=== PATIENT | male | born 1990 | race Caucasian/White ===

== ENCOUNTER 2023-08-31 05:16 | Emergency (ER) | payer BC, SELFPAY ==
[2023-08-31 05:21] VITALS: BP 113/68; PULSE 91; RESP 18; TEMP 38.1; O2SAT 98; BMI 32.4
--- NOTE | 2023-08-31 05:46 | ED.FEVER ---
HPI - Fever General Chief Complaint: Fever Stated Complaint: fever, body aches Time Seen by Provider: 08/31/23 05:46 History of Present Illness HPI Narrative: Patient is a 33-year-old gentleman comes in today with 2 day history of fever body aches general malaise and fatigue. He has no pharyngitis. He has no productive cough. He has taken Tylenol Motrin with limited success. He otherwise is in good health. He has no chronic medical issues. He has had no sick contacts. Triple swab is pending. Related Data Home Medications Medication Instructions Recorded Confirmed No Known Home Medications 08/31/23 08/31/23 Allergies Allergy/AdvReac Type Severity Reaction Status Date / Time No Known Drug Allergies Allergy Verified 08/31/23 05:24 Review of Systems Status of ROS Reports: 10 or more systems reviewed and unremarkable except as noted in History and below Exam Narrative Exam Narrative: EXAM GENERAL: Patient appears comfortable and well. EYES: No scleral icterus. ENT: Tympanic membranes and oropharynx normal. THYROID: no thyroid nodules or thyromegaly. LYMPH: No supraclavicular or cervical lymphadenopathy. SKIN: Visible skin seen during exam normal or with benign process only. EXT: No dependent lower extremity pedal edema. HEART: Regular rate and rhythm with no murmurs, rubs, or gallops. LUNGS: Clear to auscultation bilaterally with no crackles or wheezes. ABD: Soft, non tender, non distended. PSYCH: Good eye contact, speech is not pressured. Const Vital Signs, click to edit/add: Vital Signs - 24 hr 08/31/23 05:21 Temperature 100.5 F H Pulse Rate [Left Pulse Oximeter] 91 Respiratory Rate 18 Blood Pressure [Right Upper Arm] 113/68 Pulse Oximetry 98 Oxygen Delivery Method Room Air Course Course ED Course: Patient seen and examined. Vital Signs Vital signs: Initial Vital Signs Temperature 100.5 F H 08/31/23 05:21 Temperature Source Temporal Artery Scan 08/31/23 05:21 Pulse Rate 91 08/31/23 05:21 Pulse Rhythm Regular 08/31/23 05:21 Respiratory Rate 18 08/31/23 05:21 Blood Pressure 113/68 08/31/23 05:21 Blood Pressure Mean 83 08/31/23 05:21 Blood Pressure Position Sitting 08/31/23 05:21 Pulse Oximetry 98 08/31/23 05:21 Oxygen Delivery Method Room Air 08/31/23 05:21 Vital Signs Temperature 100.5 F H 08/31/23 05:21 Pulse Rate 91 08/31/23 05:21 Respiratory Rate 18 08/31/23 05:21 Blood Pressure 113/68 08/31/23 05:21 Pulse Oximetry 98 08/31/23 05:21 Oxygen Delivery Method Room Air 08/31/23 05:21 Temperature 100.5 F H 08/31/23 05:21 Pulse Rate 91 08/31/23 05:21 Respiratory Rate 18 08/31/23 05:21 Blood Pressure 113/68 08/31/23 05:21 Pulse Oximetry 98 08/31/23 05:21 Oxygen Delivery Method Room Air 08/31/23 05:21 MDM - Fever MDM Narrative Medical decision making narrative: Patient is a 33-year-old gentleman presents with a fever body aches and fatigue. Triple swab is pending. This time will continue Tylenol Motrin rest and fluids and follow-up with him based on his results. Differential Diagnosis Differential diagnosis: Likely cellulitis, fever of unknown origin, community acquired pneumonia, viral infection, sepsis and influenza Discharge Plan Discharge Clinical Impression: Acute viral syndrome Patient Disposition: Home, Self-Care Condition: Stable Instructions: Viral Syndrome (ED) Additional Instructions: Tylenol Motrin Rest Fluids We will follow-up with you based on your swab results. Activity Level: No Restrictions Discharge Diet: Regular Prescriptions: No Action No Known Home Medications Follow Up/Referrals: Matthew Ortiz MD [Primary Care Provider] - Stand Alone Forms: [employer] Info Instructions
[2023-08-31 06:00] VITALS: RESP 22; TEMP 38.1; O2SAT 98
[2023-08-31 06:18] LABS: PCR FLU A POSITIVE PCR FLU A (Negative); PCR FLU B Negative PCR FLU B (Negative); PCR RSV Negative PCR RSV (Negative); SARS PCR* Negative SARS-CoV-2 (Negative)
== END 2023-08-31 06:02 | disposition home or self-care (01) ==
LOC: ED 05:52
PROVIDERS: Emergency Provider Internal Medicine; PCP Family Medicine
DX: B34.9 Viral infection, unspecified (principal)
CPT/HCPCS: 87631; 99282; 99283

== ENCOUNTER 2025-03-07 00:42 | Emergency (ER) | payer BC, SELFPAY ==
--- OUTSIDE RECORDS SUMMARY | 2025-03-07 00:46 | XMS_ITS | Clinical Summary ---
Author Organization [facility] Address [address] [place] [id number] Care Team Providers Care Health Care Specialist Name Role Phone Pcp, No Primary Care Provider Unavailabl e Allergies No known active allergies Medications * This document contains information received from the source organization and may not represent a complete record from that organization. escitalopram oxalate 10 mg tabletIndications: Anxiety and depression Take 1 Tablet (10 mg) by mouth once daily in the morning. 30 Tablet 5 5 Active traZODone (DESYREL) 50 mg tabletIndications: Insomnia, unspecified type Take 1 Tablet (50 mg) by mouth at bedtime. 30 Tablet 2 5 Active buPROPion (WELLBUTRIN XL) 300 mg Extended-Release tabletIndications: ADHD, predominantly hyperactive type,Moderate episode of recurrent major depressive disorder (HC) Take 1 Tablet (300 mg) by mouth once daily. 30 Tablet 1 5 Active hydrOXYzine HCL 25 mg tabletIndications: Anxiety and depression Take 1 Tablet (25 mg) by mouth every 6 hours if needed for Itching. 25 Tablet 1 5 02/16/20 25 Discontinu ed(*Med ineffectiv e) buPROPion (Wellbutrin XL) 150 mg Extended-Release tabletIndications: ADHD, predominantly hyperactive type Take 1 Tablet (150 mg) by mouth once daily in the morning. 30 Tablet 1 5 02/16/20 25 Discontinu ed(*Medica tion adjustment ) Active Problems Problem Noted Date Diagnosed Date Traumatic incomplete tear of left rotator cuff 0 09/21/2024 Atypical nevus 07/06/2021 Overview (08/21/2021): 07/04/21 Left low back, Compound nevus with severe atypia: Excised 08/15/21 Kadeem Saldana spell 09/21/2011 Unresponsive episode 09/21/2011 Dysthymic disorder 09/21/2011 Anxiety state, unspecified 06/02/2011 Cocaine abuse, episodic 04/26/2011 Tobacco use disorder 04/26/2011 Polysubstance abuse Overview (07/16/2011): THC, cocaine, heroin, treatment 05/10 Anxiety Resolved Problems Problem Noted Date Diagnosed Date Resolved Date Chemical dependency-heroin 09/21/2011 0 11/17/2024 Overview (09/21/2011): Chronic heroin use. Chem dep treatment at [facility] x 4. Last treatment episode was informed last time they would take him in (admitted 08/15/11). Heroin addiction 09/21/2011 11/17/2024 Accidental heroin overdose 09/21/2011 0 11/17/2024 Drug withdrawal 08/12/2011 08/20/2011 Drug withdrawal 06/07/2011 06/11/2011 Opioid type dependence, continuous 04/26/2011 11/17/2024 Drug withdrawal 04/26/2011 05/07/2011 Cannabis dependence, continuous 04/26/2011 11/17/2024 Drug-induced mood disorder(292.84) 04/26/2011 06/11/2011 Encounters Date Type Department Care Team Description 02/15/2025 2:30 PM CDT Telemedicine [facility] [address] [address] Lizbeth Ryan NP Follow Up; Medication Management; Telehealth 02/15/2025 Travel 02/14/2025 Travel 01/11/2025 1:00 PM CDT Office Visit [facility] [address] [facility] [address] [place] [address] Lizbeth Ryan NP Mental Health Intake; Medication Management (Sees therapy for past month, PCP for two months- started patient on medications. ) 01/10/2025 Travel 01/04/2025 Travel 12/29/2024 9:35 AM CDT Office Visit [facility] [address] [place] [address] Dayton Price MD Anxiety; Depression; Concerns (Having issues sleeping) 12/28/2024 Travel 12/14/2024 3:15 PM CDT Ancillary Procedure [facility] [address] [place] [address] 12/14/2024 2:10 PM CDT Office Visit [facility] [address] [place] [address] Glenna Conner PA Testicle Pain 12/14/2024 Travel 12/14/2024 Nurse Triage [facility] [address] [place] [address] Pcp, No Testicle Pain from Last 3 Months Immunizations Immunization Administration Dates Next Due COVID-19 vaccine (Traxo NTslinkset 30mcg/0.3mL) PF, MDV 10/14/2020,09/23/2020 DTP 12/09/1995, 2,1990,1990,1990 Hib Conjugate, Unspecified 08/17/1991,1990 ,1990 Influenza, IIV4 04/22/2020 MMR 08/17/1991,1990 Polio Virus, Unspecified 12/09/1995,11/28,1990,1989 Td (Age >=7 Years) 10/02/2002 Tuberculin (PPD) 08/16/2011 Family History Medical History Relation Name Comments Alcohol/Drug Father alcoholism Heart Disease Maternal Grandfather a t 60yo Good Health Maternal Grandmother Alcohol/Drug Mother alcoholism Psychiatric illness Mother depressi on/anxiety Cancer Paternal Grandfather ? skin CA Good Health Paternal Grandmother Relation Name Status Comments Father Alive Maternal Grandfather Maternal Grandmother Mother Alive Paternal Grandfather Paternal Grandmother Social History Tobacco Use Types Packs/Day Years Used Date Smoking Tobacco: Former Cigarettes 0.5 2 0 06/30/2011 - 06/30/2013 Smokeless Tobacco: Never Tobacco Cessation:Counseling Given: Yes Alcohol Use Standard Drinks/Week Comments Not Currently 0 (1 standard drink = 0.6 oz pur e alcohol) coming up on 4 years sober PHQ-2 Answer Date Recorded PHQ-2 TOTAL SCORE 2 02/15/2025 Social Connections Answer Date Recorded Do you often feel lonely or isolated from those around you? 0 11/15/2024 Financial Resource Strain Answer Date R ecorded Difficulty of Paying Living Expenses 3 11/15/2024 Difficulty of Paying Living Expenses Not on file 11/15/2024 Food Insecurity Answer Date Recorded Do you worry your food will run out before you are able to buy more? 1 11/15/2024 Transportation Needs Answer Date Record ed Does lack of transportation keep you from medica l appointments? 1 11/15/2024 Does lack of transportation keep you from work, meetings or getting things that you need? 1 11/15/2024 Housing Stability Answer Date Recorded What is your housing situation today? 1 11/15/2024 Utilities Answer Date Recorded Do you have trouble paying f or utilities (for example, heat, electricity, water, phone)? 1 11/15/2024 Sex and Gender Information Value Date Recorded Sex Assigned at Male 08/11/2021 8:50 PM [employer] Legal Sex Male 6:50 AM [employer] Gender Identity Male 08/11/2021 8:50 PM [employer] Sexual Orientation Straight 08/11/2021 8: 50 PM [employer] Obstetrics History Last Filed Vital Signs Vital Sign Reading Time Taken Comments Blood Pressure 118/56 01/11/2025 12:59 PM CDT Pulse 85 01/11/2025 12:59 PM CDT Temperature 36.8 C (98.3 F) 05/23/2019 1:29 PM [employer] Respiratory Rate 97 05/13/2018 11:0 5 AM [employer] Oxygen Saturation 99% 12/29/2024 9:27 AM CDT Inhaled Oxygen Concentration - - Weight 95.6 kg (210 lb 12.8 oz) 12/29/2024 9:27 AM CDT Height 167.6 cm (5' 6) 12/29/2024 9:27 AM CDT Body Mass Index 34.02 12/29/2024 9:27 AM CDT Plan of Treatment Upcoming Encounters Date Type Department Care Team (Late st Contact Info) Description 04/19/2025 2:30 PM CDT Telemedicine [facility] [address] [address] [place] [address] Lizbeth Ryan, [place] [address] [facility] [address] [place] [address] Health Maintenance Due Date Last Done Comments HIV for age 15-65 2005 Hepatitis C screening for age 18-79 2008 Hepatitis B series for 19+ (1 of 3 - 19+ 3-dose series) 2009 Tetanus booster 10/02/2012 10/02/2002 HPV series for age 9-45 (1 - 3-dose SCDM series) 2017 COVID-19 vaccine series (2024- season) 2025 10/14/2020, 09/23/2020 Influenza Vaccine (#1) 2025 04/22/2020 BMI (ht and wt on same day) for age 18+ 12/29/2025 12/29/2024, 12/01/2024, 11/17/2024 Depression screening for age 12+ 02/15/2026 02/15/2025, 01/11/2025, 12/29/2024, Additional history exists RSV vaccine for adults or (1 - 1-dose 75+ series) 2065 Pneumococcal series for age 6-49 Aged Out No longer eligible based on patient's age to complete this topic Procedures Procedure Name Priority Date/Time Associated Diagnosis Comments US SCROTUM WITH DUPLEX JALIL 12/14/2024 3:19 PM CDT Left testicular pain from Last 3 Months Results * US SCROTUM W DUPLEX (12/14/2024 3:19 PM CDT) Anatomical Region Laterality Modality SCROTUM, TESTES Ultrasound 12/14/2024 3:22 PM CDT Impressions 12/14/2024 3:22 PM CDT Normal scrotal ultrasound. Dictated by Derek Ramirez MD @ 12/14/2024 3:22:53 PM (Electronically Signed) Narrative 12/14/2024 3:22 PM CDT For Patients: As a result of the Cures Act, medical imaging exams and procedure reports are released immediately into your electronic medical record. You may view this report before your referring provider. If you have questions, please contact your health care provider. INDICATION: Left testicle pain COMPARISON: none TECHNIQUE: Rosa scale imaging was performed of the scrotum. In addition color Doppler and spectral Doppler analysis was performed of the testes. FINDINGS: The testes demonstrate normal arterial and venous blood flow on color Doppler and spectral Doppler analysis. The testes have uniform echogenicity with no evidence of a suspicious mass or area of inflammation. The right testis measures 4.9 x 2.4 x 2.8 cm in size and the left testis measures 4.4 x 2.5 x 2.6 cm. The epididymis appears normal bilaterally. There is no evidence of a hydrocele or varicocele. Procedure Note Derek Ramirez MD - 12/14/2024 For Patients: As a result of the Cures Act, medical imagingexams and procedure reports are released immediately into your electronicmedical record. You may view this report before your referring provider.If you have questions, please contact your health care provider. INDICATION: Left testicle pain COMPARISON: none TECHNIQUE: Rosa scale imaging was performed of the scrotum. In addition color Dopplerand spectral Doppler analysis was performed of the testes. FINDINGS: The testes demonstrate normal arterial and venous blood flow on colorDoppler and spectral Doppler analysis. The testes have uniformechogenicity with no evidence of a suspicious mass or area ofinflammation. The right testis measures 4.9 x 2.4 x 2.8 cm in size and theleft testis measures 4.4 x 2.5 x 2.6 cm. The epididymis appears normalbilaterally. There is no evidence of a hydrocele or varicocele. IMPRESSION: Normal scrotal ultrasound. Dictated by Derek Ramirez MD @ 12/14/2024 3:22:53 PM (Electronically Signed) Glenna CHAVIS Final Result from Last 3 Months Insurance [facility] [employer] [facility] Advance Directives * Full Code (Latest Code Status on File) Date Activated Date Inactivated Comments 09/21/2011 3:57 AM 09/21/2011 1:16 PM * Full Code Date Activated Date Inactivated Comments 08/15/2011 3:51 PM 08/20/2011 6:32 PM * Full Code Date Activated Date Inactivated Comments 08/11/2011 1:40 PM 08/15/2011 3:51 PM * Full Code Date Activated Date Inactivated Comments 06/07/2011 3:25 PM 06/11/2011 4:51 PM * Full Code Date Activated Date Inactivated Comments 06/02/2011 2:21 PM 06/07/2011 3:25 PM Care Teams Health Care Specialist Relationship Specialty Start Date End Date Pcp, No . PCP - General 05/13/18
[2025-03-07 01:03] VITALS: BP 132/89; PULSE 56; RESP 20; TEMP 37.1; O2SAT 99; BMI 33.9
--- NOTE | 2025-03-07 01:15 | CRLHL7_ITS ---
For Patients: As a result of the Cures Act, medical imaging exams and procedure reports are released immediately into your electronic medical record. You may view this report before your referring provider. If you have questions, please contact your health care provider. INDICATION: Pain 5th MCP. TECHNIQUE: Right hand 3 view. COMPARISON: None. FINDINGS: Bones: No acute fracture or suspicious bone lesion. Alignment is normal. Joint spaces: Unremarkable. Soft tissues: Unremarkable. IMPRESSION: No acute findings. Dictated by Brooklyn Whaley MD @ 03/07/2025 1:38:18 AM (Electronically Signed)
--- NOTE | 2025-03-07 01:22 | ED.GENADULT ---
HPI - General Adult General Chief complaint: Extremity Pain/Injury, Upper Stated complaint: right hand pain and swelling Time Seen by Provider: 03/07/25 01:05 Source: patient Mode of arrival: ambulatory Limitations: no limitations History of Present Illness HPI narrative: [age] for old male with a history of depression anxiety presents the emergency department for evaluation of tenderness and swelling of the right hand centering around the 5th MCP joint. No trauma or injury. No prior history of surgery to this area. Initially started on a day and half ago, gradually worsening, now hurts to bend at the 5th MCP joint or bend the finger. No animal bite. No prior history of similar symptoms. No boxing or sport injuries that would have made this likely. No symptoms in opposite hand. No history of gout or rheumatological disease. Tried taking 400 mg of ibuprofen about 3 hours ago with some mild improvement. Past medical history notable for depression anxiety. Home meds of bupropion Lexapro and trazodone. Denies drug allergies. ROS is notable for the musculoskeletal symptoms only, otherwise denie Related Data Home Medications ?Medication ?Instructions ?Recorded ?Confirmed bupropion HCl 150 mg 24 hr tablet, 150 mg PO QAM 03/07/25 03/07/25 extended release escitalopram oxalate 10 mg tablet 10 mg PO QAM 03/07/25 03/07/25 trazodone 50 mg tablet 50 mg PO QPM 03/07/25 03/07/25 Allergies Allergy/AdvReac Type Severity Reaction Status Date / Time No Known Drug Allergies Allergy Verified 03/07/25 01:03 [facility] Social History service: No Exam Const: Vital Signs, click to edit/add: Vital Signs - 24 hr 03/07/25 01:03 Temperature 98.8 F Pulse Rate [Right] 56 L Respiratory Rate 20 Blood Pressure [Ri ght Upper Arm] 132/89 Pulse Oximetry 99 Oxygen Delivery Me thod Room Air Documenting provider has reviewed patient's vital signs: yes Common normals: no apparent distress General appearance: cooperative and well kempt HENMT: Common normals: normocephalic and moist oral mucous membranes Head and scalp: normocephalic Eye: Common normals: conjunctivae normal General eye: normal appearance of both eyes Conjunctiva: conjunctiva(e) normal Neck & C-Spine: General: normal visual inspection Resp: Common normals: normal respiratory effort Effort & inspection: able to speak in complete sentences Cardio: Other: Regular rate and rhythm palpated in right radial pulse. Normal capillary refill of fingers. Extremity: Other: Left hand appears grossly normal. Right hand has some mild swelling centering only on the right 5th MCP joint. There is no redness but there is exquisite tenderness. The other MCP joints are not affected. There is no tenderness to palpation of the 5th digit. He can bend at the PIP and the IP joint of the 5th digit. All other fingers and thumb move normally. There are no signs of external trauma to the skin of this area, animal bite, purulent drainage. He has tenderness with abduction and adduction of the 5th digit as well but not the other fingers. Is able to fully extend, can bend but is tender to do so Only at the 5th digit. Nails appear normal. Normal sensation. Psych: Appearance: well kempt Attitude: engaged Activity/motor behavior: appropriate eye contact Insight: insight good Judgement: judgment good Skin: Common normals: no rashes or lesions noted General skin exam: no rashes or lesions noted Course Course ED Course: 34-year-old male with exquisite tenderness at the 5th MCP joint of uncertain etiology. Differential diagnosis includes fracture, tendinitis, inflammatory condition like gout or pseudogout, infectious etiology, among others. Will obtain x-ray, give Tylenol 1000 mg p.o. x1 Reevaluation(s) Time of Reevaluation #1: 02:16 Reevaluation #1: Patient's pain is improving somewhat after the Tylenol. We discussed his normal x-ray findings. No signs of fracture, effusion, soft tissue swelling or other abnormality. I suspect that it this is getting inflamed from some sort of repetitive motion or occupational exposure. Less likely arthropathy from gout or other inflammatory condition. Recommended a short course of prednisone 20 mg b.i.d. after an initial 40 mg dose here in the ED and 10 mg of Toradol which will be given prior to discharge. Use of the medication and warning symptoms discussed. May discontinue after 3 days if symptoms have completely resolved. Primary care follow-up not improving by the end of the course of prednisone. Off work for today per returning tomorrow to typical duties. I have challenged him to try to figure out what repetitive activity he is doing that is causing inflammation and have given some hands such as vibrating tools, tight gripping, etc.. He will work to avoid prolonged exposure to this if possible. Vital Signs Vital signs: Initial Vital Signs Temperature 98.8 F 03/07/25 01:03 Temperature Source Temporal Artery Scan 03/07/25 01:03 Pulse Rate 56 L 03/07/25 01:03 Pulse Rhythm Regular 03/07/25 01:03 Pulse Strength 3+ Normal 03/07/25 01:03 Respiratory Rate 20 03/07/25 01:03 Blood Pressure 132/89 03/07/25 01:03 Blood Pressure Mean 103 03/07/25 01:03 Pulse Oximetry 99 03/07/25 01:03 Oxygen Delivery Method Room Air 03/07/25 01:03 Vital Signs Temperature 98.8 F 03/07/25 01:03 Pulse Rate 56 L 03/07/25 01:03 Respiratory Rate 20 03/07/25 01:03 Blood Pressure 132/89 03/07/25 01:03 Pulse Oximetry 99 03/07/25 01:03 Oxygen Delivery Method Room Air 03/07/25 01:03 Temperature 98.8 F 03/07/25 01:03 Pulse Rate 56 L 03/07/25 01:03 Respiratory Rate 20 03/07/25 01:03 Blood Pressure 132/89 03/07/25 01:03 Pulse Oximetry 99 03/07/25 01:03 Oxygen Delivery Method Room Air 03/07/25 01:03 Medications Administered Medications: Discontinued Medications Generic Name Dose Route Start Last Admin Trade Name Freq PRN Reason Stop Dose Admin Acetaminophen 1,000 mg 03/07/25 01:29 03/07/25 01:42 Acetaminophen 500 Mg Tablet PO 03/07/25 01:30 1,000 mg ONCE ONE Administration Medical Decision Making Imaging Data x-ray right hand: Attestation: I have reviewed the pertinent imaging results. My impression: normal x-ray. No fracture, no soft tissue swelling, no effusion Radiologist's impression: FINDINGS: Bones: No acute fracture or suspicious bone lesion. Alignment is normal. Joint spaces: Unremarkable. Soft tissues: Unremarkable. IMPRESSION: No acute findings. Dictated by Brooklyn Whaley MD @ 03/07/2025 1:38:18 AM (Electronic Signature) Discharge Plan Discharge Clinical Impression: Pain in metacarpus Patient Disposition: Home, Self-Care Condition: Stable Instructions: Arthralgia (ED) Additional Instructions: as we discussed, there is some inflammation in that hand joint where it meets the pinky but there are no signs of fracture, fluid in the joint or other abnormality. I suspect that this is getting chronically inflamed from some sort of overuse but there certainly could be a rheumatological condition like gout or other similar inflammatory arthropathy. I have recommended a short course of prednisone, a common anti-inflammatory medication. You were given 40 mg here in the emergency room. You will continue on 20 mg twice daily for the next 5 days. If your symptoms have completely resolved after 3 days, you may discontinue the medication as he the remainder for a subsequent flare up again. For pain, I recommend Tylenol 1000 mg every 6 hours and or ibuprofen 600 mg every 6 hours. remember that the prednisone is best taken twice a day but not within about 3 hours of bedtime as it can cause some insomnia. Try to space her doses at least 8 hours apart. Also it is important that you are playing city detective and figuring out what is causing inflammation in this area. I often find it from tight gripping, a vibrating tools, similar repetitive motions. Your likely to have return of symptoms even while you are still on the prednisone while doing the activity, this may give you some hints. Wearing support gloves or other measures may reduce inflammation in the future from this activity. Off work for today, may return tomorrow for typical duties. Follow-up with a primary care provider for an occupational health or orthopedic referral if things are not improving in 3-4 days. Activity Level: Activity as Tolerated Discharge Diet: Regular Prescriptions: No Action trazodone 50 mg tablet 50 mg PO QPM escitalopram oxalate 10 mg tablet 10 mg PO QAM bupropion HCl 150 mg tablet extended release 24 hr 150 mg PO QAM Follow Up/Referrals: Matthew Ortiz MD [Staff Physician, Family Practice] Stand Alone Forms: [employer] Info Instructions
[2025-03-07] MEDS: ACETAMINOPHEN 500 MG TABLET 1000 MG PO (01:42)
[2025-03-07] MEDS: KETOROLAC 10 MG TABLET PO (02:27)
== END 2025-03-07 02:30 | disposition home or self-care (01) ==
PROVIDERS: Emergency Provider Family Medicine; PCP Family Medicine
DX: M79.641 Pain in right hand (principal)
CPT/HCPCS: 73130; 99283; 99284; A9270; J7512